=== PATIENT | female | born 1950 | race Caucasian/White ===

== ENCOUNTER 2016-12-01 15:27 | Emergency (ER) | payer OTHER ==
[~2016-12-01] VITALS: Ht 151.1 cm; Wt 92.8 kg
[~2016-12-01 15:27] MED LIST: ASCA500 PO; CHOL100010 PO; LUTE15CA PO; PRED1SUS3
[2016-12-01 15:30] VITALS: TEMP 36.4; Ht 151.1 cm; Wt 92.8 kg
--- NOTE | 2016-12-01 16:19 | DIAGNOSTIC IMAGING REPORT ---
LEFT HUMERUS MIN 2 VIEWS ROUTINE CLINICAL HISTORY: Left humeral pain status post trauma COMPARISON: None. DISCUSSION: No fractures or dislocations are visualized. There is a tiny calcification adjacent the humeral head, potentially indicating calcific tendinitis. IMPRESSION: No fractures or dislocations identified. Electronically signed by: Dorian Diallo M.D. 12/01/2016 4:18 PM Dictated Date/Time: 12/01/2016 4:17 PM
--- NOTE | 2016-12-01 16:44 | EMERGENCY ROOM VISIT NOTE ---
History Report prepared by Odetteibsiva: Norma Tarango Under the Supervision of: Dr. Cayden Gamez D.O. First contact with patient: 15:36 Chief Complaint: SHOULDER PAIN Stated Complaint: L SHOULDER INJURY History of Present Illness The patient is a 66 year old female who presents to the Emergency Room with complaints of persistent left shoulder pain starting about an hour ago. The patient fell down and slammed her elbow into the fireplace. She has worsening pain with movement of shoulder. She has a bruise on her left elbow. She took 2 extra strength Tylenol with some relief. She denies any other complaints. Source of History: patient Onset: about an hour ago Position: shoulder (left) Timing: other (persistent) Modifying Factors (Worsening): movement Modifying Factors (Relieving): tylenol (without relief) Review of Systems See HPI for pertinent positives & negatives. A total of 10 systems reviewed and were otherwise negative. Past Medical & Surgical Medical Problems: (1) Chest pain Family History Patient reports no known family medical history. Social History Smoking Status: Never Smoker Marital Status: Occupation Status: employed Current/Historical Medications No Active Prescriptions or Reported Meds Allergies Coded Allergies: Latex1 -Allergic Contact Dermititis (Verified Allergy, Unknown, BLISTERS, 02/01/16) Physical Exam Vital Signs Date Time Temp Pulse Resp B/P Pulse Ox O2 Delivery O2 Flow Rate FiO2 12/01/17 15:30 36.4 77 18 159/85 98 Room Air Physical Exam CONSTITUTIONAL/VITAL SIGNS: Reviewed / noted above. GENERAL: Non-toxic in appearance. INTEGUMENTARY: Warm, dry, and [place]. HEAD: Normocephalic. EYES: without scleral icterus or trauma. ENT/OROPHARYNX: clear and moist. LYMPHADENOPATHY/NECK: Is supple without lymphadenopathy or meningismus. RESPIRATORY: Lungs clear and equal. CARDIOVASCULAR: Regular rate and rhythm. GI/ABDOMEN: Soft and nontender. No organomegaly or pulsatile mass. No rebound or guarding. Normal bowel sounds. EXTREMITIES: Warm and well perfused. Mild discomfort in the eft shoulder area with movement and palpation, no obvious swelling, bruising, or deforming, good distal pulses. BACK: No CVA tenderness. NEUROLOGICAL: Intact without focal deficits. PSYCHIATRIC: normal affect. MUSCULOSKELETAL: Normally developed with good muscle tone. Medical Decision & Procedures ER Provider Diagnostic Interpretation: X ray results and stated below per my interpretation and radiology interpretation.] LEFT HUMERUS MIN 2 VIEWS ROUTINE CLINICAL HISTORY: Left humeral pain status post trauma COMPARISON: None. DISCUSSION: No fractures or dislocations are visualized. There is a tiny calcification adjacent the humeral head, potentially indicating calcific tendinitis. IMPRESSION: No fractures or dislocations identified. Electronically signed by: Dorian Diallo M.D. 12/01/2016 4:18 PM Dictated Date/Time: 12/01/2016 4:17 PM ED Course 1536: Previous medical records were reviewed. The patient was evaluated in room D03A. A complete history and physical examination was performed. 1645: On reevaluation, the patient is resting comfortably. I discussed the results and findings with the patient. She verbalized agreement of the treatment plan. She was discharged home. Medical Decision Differential diagnosis: Etiologies such as fracture, dislocation, neurovascular compromise, compartment syndrome, soft tissue injury, as well as others were entertained. This is a 58-year-old female who presents to the ED with a chief complaint of left shoulder discomfort after fall. The patient states that she fell about an hour prior to her arrival here. She fell onto her left elbow and humerus. She states that he she has discomfort with movement. Vital signs are normal. Her exam did not reveal any obvious fractures or significant contusions. She does have discomfort on exam. An x-ray of the humerus did not reveal any fractures or dislocations. The patient was told results and discharged. Impression Primary Impression: Contusion of arm, left Scribe Attestation The scribe's documentation has been prepared under my direction and personally reviewed by me in its entirety. I confirm that the note above accurately reflects all work, treatment, procedures, and medical decision making performed by me. Departure Information Dispostion Home / Self-Care Prescriptions No Active Prescriptions or Reported Meds Referrals Mata Barreto M.D. (PCP) Forms HOME CARE DOCUMENTATION FORM, IMPORTANT VISIT INFORMATION Patient Instructions [facility] Additional Instructions X-ray did not show any fractures or dislocations. Take Tylenol or Motrin as needed for pain. Anticipate improvement over the next several days. Talk to your doctor about physical therapy if you feel this is necessary or if your pain does not improve over the next week.
[2016-12-01 17:34] VITALS: BP 137/70; PULSE 82; O2SAT 97
== END 2016-12-01 17:36 | disposition home or self-care (01) ==
LOC: C.EDB 15:28 → C.EDD 17:36
DX: S40.022A Contusion of left upper arm, initial encounter (principal); W19.XXXA Unspecified fall, initial encounter

== ENCOUNTER 2025-09-01 05:30 | Observation (INO) ==
--- NOTE | 2025-08-11 08:52 | PAT Medication Instructions ---
Medication Instructions Date of Service August 11, 2025 Home Medications Lactobacillus acidophilus 10 billion cell capsule (Probiotic) 10,000 mmu cells PO DAILY acetaminophen 325 mg tablet (Tylenol) 325 mg PO QID PRN aspirin 325 mg capsule 325 mg PO BID PRN cholecalciferol (vitamin D3) 25 mcg (1,000 unit) capsule (Vitamin D3) 25 mcg PO DAILY flaxseed oil 1,300 mg capsule 1,300 mg PO DAILY magnesium 200 mg tablet 200 mg PO DAILY vitamins A,C,B-qxbj-fiqour 2,148 mcg-113 mg-45 mg-17.4 mg tablet (PreserVision AREDS) 2 tab PO BID ASK your prescriber and surgeon aspirin 325 mg capsule 325 mg PO BID PRN STOP taking 2 weeks before surgery (or as soon as possible if surgery is within 2 weeks) flaxseed oil 1,300 mg capsule 1,300 mg PO DAILY vitamins A,C,S-fcyw-jakwqx 2,148 mcg-113 mg-45 mg-17.4 mg tablet (PreserVision AREDS) 2 tab PO BID DO NOT take the morning of surgery Lactobacillus acidophilus 10 billion cell capsule (Probiotic) 10,000 mmu cells PO DAILY cholecalciferol (vitamin D3) 25 mcg (1,000 unit) capsule (Vitamin D3) 25 mcg PO DAILY magnesium 200 mg tablet 200 mg PO DAILY Take morning of surgery With a small sip of water, OTHERWISE NOTHING TO EAT OR DRINK AFTER MIDNIGHT: acetaminophen 325 mg tablet (Tylenol) 325 mg PO QID PRN(if needed) Take evening before surgery acetaminophen 325 mg tablet (Tylenol) 325 mg PO QID PRN(if needed) Other Notes If you have any questions please call us at [phone] or [phone] or [phone] or [phone]
--- NOTE | 2025-08-18 08:50 | Anesthesiology Consultation ---
Date of Service August 18, 2025 Assessment & Plan (1) Encounter for pre-operative examination: - Infectious disease screening: Per assessment on 08/18/25- No known recent infectious disease contacts or current infectious disease symptoms. - Outpatient joint assessment: Pt currently scheduled for inpatient pathway. If surgeon requests review for outpatient joint pathway, patient is not a recommended candidate for outpatient joint program from anesthesia standpoint based on available information. Chart Review Chart Review: Acceptable Risk for Surgery and Patient seen in Pre Admission Testing Teaching & Discussion Pre-Anesthesia Teaching/Discussion Notes: Instructed NPO after midnight before surgery,except medications with 15 cc of water. Medication instructions provided according to the PAT guidelines. History Surgery Operation Date: 09/01/25 07:00 Proposed Procedures p Right Total Hip Arthroplasty - Dalton Quick MD Height/Weight Height: 4 ft 10.5 in Weight: 76 kg Allergies Allergy/AdvReac Type Severity Reaction Status Date / Time latex Allergy Unknown Blisters Verified 08/18/25 08:54 Medications Home Medications Medication Instructions Recorded Confirmed Last Taken Lactobacillus acidophilus 10 10,000 mmu cells PO DAILY 08/10/25 08/11/25 Unknown billion cell capsule (Probiotic) acetaminophen 325 mg tablet 325 mg PO QID PRN Pain 08/10/25 08/11/25 Unknown (Tylenol) aspirin 325 mg capsule 325 mg PO BID PRN Pain 08/10/25 08/11/25 Unknown cholecalciferol (vitamin D3) 25 25 mcg PO DAILY 08/10/25 08/11/25 Unknown mcg (1,000 unit) capsule (Vitamin D3) flaxseed oil 1,300 mg capsule 1,300 mg PO DAILY 08/10/25 08/11/25 Unknown magnesium 200 mg tablet 200 mg PO DAILY 08/10/25 08/11/25 Unknown vitamins A,C,R-tisk-ycgmpb 2,148 2 tab PO BID 08/10/25 08/11/25 Unknown mcg-113 mg-45 mg-17.4 mg tablet (PreserVision AREDS) Past Medical History Medical History DJD (degenerative joint disease) History of COVID-2019 Osteoarthritis Exercise / Class Metabolic Activity II 4-5 Yardwork/Stairs/Walk up hill (one FS: No CP, no SOB) Past Family History Family History Mother Cancer Grandmother (Maternal) Cancer Past Surgical History Surgical History H/O bilateral cataract extraction History of section x2 History of colonoscopy History of knee replacement R/L History of tonsillectomy History of tooth extraction Past Anesthesia History No Family Hx of Anesthesia Complications and Other (Awareness with cataracts) History of PONV No Hx of PONV and Hx of Motion Sickness (Situational) Social History Smoking Status: Former smoker Do You Dip or Chew Tobacco: No Smoking End Date: 10+ years ago Hx Alcohol Use: Yes Alcohol type: wine alcohol intake frequency: a few times a week Hx Substance Use: No substance use type: does not use Review of Systems Patient denies chest pain, shortness of breath, dyspnea on exertion, fever, chills, cough, wheezing, palpitations. Physical Exam Vital Signs BP 113/72 P 67 TEMP 97.9 SP02 97%RA RESP 16 Physical Full cervical extension range of motion. Full TMJ range of motion. TMD 3 finger breaths Mallampati Score II Dentition: intact, crowns/implants (sides/molars) Lungs: clear throughout to auscultation Cardiac: regular rate and rhythm, no murmurs noted Spine: normal Carotid arteries: negative bruit Extremities: no LE edema Lab Results Anesthesia Preop Results Results Anesthesia Widget: WBC 5.75 K/ul (4.8-10.8) 08/18/25 Hgb 12.5 g/dL (12.0-16.0) 08/18/25 Hct 36.8 % (37.0-47.0) L 08/18/25 Plt 322 K/uL (130-400) 08/18/25 Na 139 mmol/L (136-145) 08/18/25 K 3.9 mmol/L (3.5-5.1) 08/18/25 Cl 105 mmol/L (98-107) 08/18/25 CO2 28 mmol/L (21-32) 08/18/25 BUN 16 mg/dl (6-23) 08/18/25 Creat 0.70 mg/dl (0.6-1.2) 08/18/25 Glucose Level 90 mg/dl (70-99(Fasting)) 08/18/25 PT 10.8 Seconds (9.0-12.0) 08/18/25 PTT 26 Seconds (21-31) 08/18/25 INR 1.0 (0.9-1.1) 08/18/25 Blood Type A Positive 08/18/25 Antibody Screen NEGATIVE 08/18/25 Testing Electrocardiogram Date: 08/18/25 NSR at 67bpm. Low voltage QRS. Cannot r/o anterior infarct, age undetermined. No significant change compared to 04/21/2009 per leather tanner comparison. Chest X-Ray Date: 08/18/25 FINDINGS: Stable mild cardiomegaly without pulmonary vascular congestion. No consolidation or pleural effusion. IMPRESSION: No acute findings. Stress Test Date: 09/24/19 Type: exercise Stress echo negative for inducible ischemia. Below average exercise capacity. 6.7 METS. 103% MPHR. Mildly increased cLV wall thickness. Grade I DD. No significant valvular disease. LVEF 60-64%.
[2025-09-01] MEDS: LR 500ML BOLUS, THEN 15ML/HR IV SCH (05:51)
[2025-09-01] MEDS: ACETAMINOPHEN 500 MG TAB PO SCH ×2 (05:52→15:03)
[2025-09-01] MEDS: LR 60ML/HR IV SCH (05:53)
[2025-09-01] MEDS: dexAMETHasone**PF** 10 MG/ML VIAL IV SCH (05:53)
[2025-09-01] MEDS: METOCLOPRAMIDE HCL 10 MG TABLET PO SCH (05:53)
[2025-09-01] MEDS: CeleBREX 200 MG CAP PO SCH (05:53)
[2025-09-01] MEDS: FAMOTIDINE 20 MG TAB PO SCH (05:53)
[2025-09-01] MEDS ORDERED: DEXAMETHASONE SOD INJ 4 MG/ML VIAL ONE (06:32)
[2025-09-01] MEDS ORDERED: LIDOCAINE 2% 2 ML VIAL/AMP(20MG/ML) INFIL ONE (06:32)
[2025-09-01] MEDS ORDERED: ONDANSETRON INJ 2 MG/ML 2 ML VIAL ONE (06:32)
[2025-09-01] MEDS ORDERED: PROPOFOL IV EMULSION 10 MG/ML 20 ML VIAL IV ONE (06:32)
[2025-09-01] MEDS ORDERED: MIDAZOLAM HCL 1 MG/ML 2ML VIAL ONE (06:33)
[2025-09-01] MEDS ORDERED: BUPIVACAINE 0.5 % 5 MG/1 ML PF 10ML VIAL ONE (06:34)
[2025-09-01] MEDS ORDERED: GLYCOPYRROLATE 0.2 MG/ML VIAL ONE (06:35)
--- NOTE | 2025-09-01 06:41 | History & Physical Bridge Note ---
Date of Service September 01, 2025 History & Physical Bridge Note I have examined the patient, reviewed the History & Physical and in the interval since the performance of the History & Physical I have noted the following changes of clinical significance: no changes noted
[2025-09-01] MEDS: TRANEXAMIC ACID 1,000 MG **IV Pre-op IV SCH (06:44)
[2025-09-01] MEDS ORDERED: PROMETHAZINE HCL 6.25 MG in SODIUM CHLORIDE 0.9% 50 ML IV PRN (08:05)
[2025-09-01] MEDS ORDERED: ONDANSETRON INJ 2 MG/ML 2 ML VIAL IV PRN ×2 (08:05→10:37)
[2025-09-01] MEDS ORDERED: ATROPINE SULFATE 0.1 MG/ML 10ML SYR IV PRN (08:05)
[2025-09-01] MEDS: BUPIVACAINE/EPINEPHRINE 0.5% MPF 1:200,000 30 ML VIAL ONE (08:37)
--- NOTE | 2025-09-01 09:01 | Operative Report ---
PG Post Operative Report Pre & Post Diagnosis Operation Date: 09/01/25 07:00 Pre-Op Diagnosis: Right Hip Osteoarthritis Post-Op Diagnosis: Right Hip Osteoarthritis I identified the patient and participated in the time-out.: Yes Procedure Operation Date: 09/01/25 07:00 Actual Procedures p Right Total Hip Arthroplasty(Right) - Dalton Quick MD Surgeon Dalton Quick MD Automation Tester Angel Rudolph PA-C Estimated Blood Loss 100 Findings Consistent with Post-Op Diagnosis Specimens Right femoral head sent for pathology. Anesthesia Type Spinal MAC Complications none Disposition Accompanied Patient To Recovery: No Indications The patient is a 74-year-old female who has a history of progressive right hip pain discomfort is gotten markedly worse over the past year. That she is really been limited by the discomfort and affecting her quality of life. She failed conservative measures. X-rays show advanced hip arthritis with significant progression over the past year. She elected proceed with right total hip arthroplasty. Description of Procedure Operative implants consist of: 1. Biomet G7 size 46 mm acetabular shell. 2. 6.5 cancellous acetabular screws 135 mm in length 1 to 25 mm length. 3. [place] hole clinical informatics educator. 4 highly cross-linked polyethylene liner with a 46 mm outer diameter 32 mm inner diameter. 5. DePuy [employer] size 11 short neck 125 degree angle femoral stem 6. +5/32 mm ceramic articular ball. The patient was taken to the op room, identified, placed on the operating table in the supine position. All contact areas were appropriately padded. IV antibiotics were provided by the anesthesia team. A spinal anesthetic had been implemented holding area. A Howard catheter was placed in sterile fashion. The patient then placed in the left lateral decubitus position. An axillary roll was placed. Distal Birkett position was used for positioning. The right hip and leg were then prepped and draped in usual sterile fashion. A posterior lateral approach to the right hip was then performed to a curvilinear incision centered over the greater trochanter. Sharp dissection was Through subcutaneous tissue down to level the IT band gluteal fascia. She had a fairly thick soft tissue envelope. The IT band gluteal fascia then incised longitudinally in line with skin incision. The underlying greater bursa was excised. The piriformis and external rotators along with the posterior hip joint capsule then was released from the posterior aspect of the hip as a single layer. Great care was taken throughout the procedure protect the sciatic nerve at all times. The hip was internally rotated and dislocated. A femoral neck osteotomy cut was made with a Final Cut about a centimeter above the lesser trochanter. Femoral head was removed and sent for pathology. The femur was retracted anteriorly. Attention drawn to the acetabulum. The acetabular labrum was excised. The Pulvinal fat was excised. Sequential reaming the acetabulum was then performed again with size 35 and progressing up to a 45. We reamed a little bit with a 46 reamer and then placed a 46 mm Biomet G7 acetabular shell in about 4 degrees lateral opening and 20 degrees of anteversion. It was fixed with two 6.5 screws. Trial liner was placed. Attention drawn the femur. The proximal femur was entered with cookie-cutter followed by canal finder. Then broached to a size 8 and progressed up to size 11. Of the 11 fit quite nicely. That intake AccuFit did well broach then. We trialed the hip and the hip was fully stable, soft tissue tension was appropriate and leg lengths seem equal. We elected place these implants. All trial implants were removed. [place] hole clinical informatics educator was placed. Highly cross- linked polyethylene liner was placed. A DePuy [employer] size 11 short neck 125 degree angle stem was then impacted in position. +5/32 mm ceramic articular ball was placed. Hip was located once again found to be stable. Attention jointer closing. The wound was irrigated coconuts with pulsatile lavage solution. I did inject locally with 60 cc of half percent Marcaine with epinephrine. The posterior capsule and external rotators were then repaired to drill holes in the posterior trochanter with #2 Tycron suture. The IT band gluteal fascia then closed #1 PDS suture in a running fashion. The subcutaneous tissue was then closed in 3 layers with the 2 deeper layers using #2 Vicryl in the subcutaneous tissues with 2-0 Dexon suture in a buried interrupted fashion. Skin was closed skin mookie. A- pressure/Prevena VAC dressing was then applied due to the thick soft tissue envelope. The patient then transferred to the recovery room in stable condition. Patient tolerated procedure well and there are no complications. Angel Rudolph, my physician programs assistant, was present for the entire procedure. His assistance was essential and required for appropriate patient positioning, prepping and draping, surgical exposure, performing the technical details of the operation, placement the implants, closure of the wound, and placement of the sterile bandage. I attest to the content of the Intraoperative Record and any orders documented therein. Any exceptions are noted below.
--- NOTE | 2025-09-01 09:29 | XRay Report ---
XR hip 1V RT w pelvis CLINICAL HISTORY: IN PACU - Post Surgical COMPARISON: None FINDINGS: Right hip prosthesis shows no hardware complication. There is expected soft tissue gas. Sk in mookie are present laterally. IMPRESSION: Unremarkable postoperative exam. ACT 112: Negative or not required by law. Electronically signed by: Rishabh Palma M.D. 09/01/2025 9:28 AM
--- NOTE | 2025-09-01 09:58 | Anesthesiology Progress Note ---
Date of Service September 01, 2025 Anesthesia Post Procedure Vital Signs Vital Signs: Temp Pulse Pulse Resp BP Pulse Ox O2 Del Method 09/01/25 09:45 62 17 97/57 L 97 Room Air 09/01/25 09:30 36.3 C L 61 14 104/55 L 97 Room Air 09/01/25 09:20 77 16 111/59 L 99 Room Air 09/01/25 09:10 80 19 97/47 L 96 Room Air 09/01/25 09:00 79 14 111/54 L 98 Room Air 09/01/25 08:53 36.0 C L 92 H 24 114/63 98 Room Air 09/01/25 05:55 36.5 C 69 16 116/76 97 Room Air Transfer of Care Handoff Completed per policy Notes Mental Status: alert / awake / arousable and participated in evaluation Patient Amnestic to Procedure: Yes Nausea / Vomiting: adequately controlled Pain: adequately controlled Airway Patency, RR, SpO2: stable & adequate BP & HR: stable & adequate Hydration State: stable & adequate Neuraxial Anesthesia: was administered and sensory block is resolving Anesthetic Complications: no major complications apparent
[2025-09-01] MEDS ORDERED: METOCLOPRAMIDE HCL INJ 5 MG/ML 2 ML VIAL IV PRN (10:37)
[2025-09-01] MEDS ORDERED: SENNA 8.6 MG TAB PO SCH (10:37)
[2025-09-01] MEDS ORDERED: NON-FORMULARY MEDICATION (Vitamins A,C,E-Zinc-Copper [Preservision Areds] 2,148 mcg-113 mg PO SCH (10:37)
[2025-09-01] MEDS ORDERED: NON-FORMULARY MEDICATION (Lactobacillus Acidophilus [Probiotic] 10 billion cell Capsule) PO SCH (10:37)
[2025-09-01] MEDS ORDERED: NON-FORMULARY MEDICATION (Magnesium 200 mg Tablet) PO SCH (10:37)
[2025-09-01] MEDS ORDERED: MAGNESIUM HYDROXIDE SUSP 30 ML UDC PO PRN (10:37)
[2025-09-01] MEDS ORDERED: ALUMINUM/MAGNESIUM SUSP 30 ML UDC PO PRN (10:37)
[2025-09-01] MEDS ORDERED: NALOXONE HCL 0.4 MG/1 ML VIAL/CARP IV PRN (10:37)
[2025-09-01] MEDS: KETOROLAC TROMETHAMINE 15 MG/ML VIAL IV SCH (12:03)
[2025-09-01] MEDS: DOCUSATE SODIUM 100 MG CAP PO SCH (12:04)
[2025-09-01] MEDS: SODIUM CHLORIDE 0.9% 1,000 ML IV SCH (12:07)
[2025-09-01] MEDS: TRANEXAMIC ACID / 0.7% NACL 1,000 MG/100 ML BAG IV SCH (14:42)
[2025-09-01] MEDS: CHOLECALCIFEROL 25 MCG (1000 UNITS) TAB PO SCH (15:03)
[2025-09-01] MEDS: MULTIVITAMIN TAB PO SCH (15:03)
[2025-09-01] MEDS: ASPIRIN 81 MG ECTAB PO SCH (15:07)
[2025-09-01] MEDS: HYDROmorphone INJ 0.5 MG/0.5 ML SYR IV PRN (15:43)
[2025-09-01] MEDS: ASCORBIC ACID 500 MG TAB PO SCH (16:38)
[2025-09-01] MEDS: SENNA 8.6 MG TAB PO SCH (21:30)
[2025-09-02 06:57] LABS: Hematocrit (blood only) 32.7 % (37.0-47.0); Hemoglobin 11.0 g/dL (12.0-16.0); Immature Granulocytes # (auto) 0.06 K/uL (0.01-0.20); Immature Granulocytes % (auto) 0.5 %; Mean Corpuscular Hemoglobin 29.5 pg (25.0-34.0); Mean Corpuscular Volume 87.7 fL (80.0-100.0); Platelet Count 295 K/uL (130-400); RDW Standard Deviation 44.3 fL (36.4-46.3); Red Blood Count 3.73 M/uL (4.20-5.40); White Blood Count 13.27 K/ul (4.8-10.8)
[2025-09-02 07:16] VITALS: BP 118/73; PULSE 68; RESP 16; TEMP 98.2; O2SAT 99
[2025-09-02 07:18] LABS: Anion Gap 7.0 (3-11); Blood Urea Nitrogen 14.0 mg/dl (6-23); Calcium 9.5 mg/dl (8.6-10.3); Carbon Dioxide 25.0 mmol/L (21-32); Chloride 108.0 mmol/L (98-107); Creatinine Clr Calc Pharmacy 67.9 ml/min; Glucose 98.0 mg/dl (70-99(Fasting)); Potassium 4.1 mmol/L (3.5-5.1); Sodium 140.0 mmol/L (136-145)
[2025-09-02] MEDS: dexAMETHasone 10 MG in SYRINGE 0 ML IV SCH (07:27)
--- NOTE | 2025-09-02 07:29 | Orthopedic Progress Note ---
Date of Service September 02, 2025 Assessment & Plan (1) Status post right hip replacement: Plan: 74-year-old female postop day 1 from a right hip replacement doing well. Pain is controlled. Hip is located. She is neurologically intact. Hoping to go home today. Plan: 1. VTE prophylaxis including thigh-high teds, SCDs, aspirin twice daily. 2. PT/OT. She can fully weight-bear as tolerated. Needs to obey hip precautions. 3. Pain control. Doing okay with current pain regimen. 4. Disposition. Plan is to discharge to home with some home health if she does okay in therapy today. Admission and Anticipated Discharge Date Admission Date: September 01, 2025 Subjective 74-year-old female postop day 1 from a right hip replacement. She is doing well. Had pretty good night. No chest pain or shortness of breath. Not feeling dizzy or lightheaded. Anxious to get up and start walking. Physical Exam Physical Exam: Physical nation was a pleasant middle-aged female. Lying in bed looks pretty comfortable this morning. Examination of the right hip and leg reveals the Prevena VAC dressing to be in place. Leg lengths are equal. She can dorsiflex and plantarflex her foot appropriately. She is neurologically intact. Respiratory: normal respiratory effort, lungs clear to auscultation Cardiovascular: RRR, no murmur, no edema Gastrointestinal (Abdomen): normal bowel sounds, soft, nontender, no hepatosplenomegaly Results & Data Vital Signs (Past 12 Hours) Vital Signs Temp Pulse Resp BP BP Pulse Ox O2 Del Method 09/02/25 07:16 36.8 C 68 16 118/73 99 Room Air 09/02/25 04:00 36.6 C 70 14 126/75 98 Room Air 09/01/25 21:00 36.6 C 70 16 126/75 98 Room Air Laboratory Results White blood cell count 13.27. Hemoglobin 11.0. Hematocrit 32.7. Electrolytes are stable
== END 2025-09-02 11:08 | disposition home health service (06) ==
LOC: ASU 05:30 → PACUINP 05:30 → 3W 11:30